=== PATIENT | female | born 1955 | race Caucasian/White ===

== ENCOUNTER → 2023-12-07 13:37 | Outpatient (REF) | payer MEDICARE, OTHER, SELFPAY | LOC: RAD 13:37 | PROVIDERS: ATTENDING PHYSICIAN Internal Medicine Endocrinology, Diabetes & Metabolism; FAMILY PHYSICIAN Physician Assistant Medical | DX: E04.2 Nontoxic multinodular goiter (principal) | CPT/HCPCS: 76536 ==

== ENCOUNTER → 2023-12-12 12:17 | Outpatient (REF) | payer MEDICARE, OTHER, SELFPAY | LOC: WDC 12:17 | PROVIDERS: ATTENDING PHYSICIAN Obstetrics & Gynecology; FAMILY PHYSICIAN Physician Assistant Medical | DX: Z12.31 Encounter for screening mammogram for malignant neoplasm of breast (principal) | CPT/HCPCS: 77063; 77067 ==

== ENCOUNTER → 2024-07-23 06:45 | Outpatient (REF) | payer MEDICARE, OTHER, SELFPAY | LOC: MRI 3T 06:45 | PROVIDERS: ATTENDING PHYSICIAN Physician Assistant Medical; FAMILY PHYSICIAN Physician Assistant Medical | DX: M79.645 Pain in left finger(s) (principal) | CPT/HCPCS: 73218 ==

== ENCOUNTER → 2024-07-26 14:16 | Outpatient (REF) | payer MEDICARE, OTHER, SELFPAY | LOC: RCS 14:16 | PROVIDERS: ATTENDING PHYSICIAN Orthopaedic Surgery | DX: Z01.818 Encounter for other preprocedural examination (principal) | CPT/HCPCS: 93005 ==

== ENCOUNTER 2024-08-22 13:55 | Outpatient (RCR) | payer MEDICARE, OTHER, SELFPAY | END 2024-08-22 23:59 | disposition home or self-care (01) | LOC: ROT 13:55 | PROVIDERS: ATTENDING PHYSICIAN Physician Assistant Medical; FAMILY PHYSICIAN Physician Assistant Medical | DX: S63.642D Sprain of metacarpophalangeal joint of left thumb, subsequent encounter (principal); Z73.6 Limitation of activities due to disability | CPT/HCPCS: 97166; 97535; 97760 ==

== ENCOUNTER 2024-09-18 10:03 | Outpatient (RCR) | payer MEDICARE, OTHER, SELFPAY | END 2024-09-18 23:59 | disposition home or self-care (01) | LOC: RPT 10:03 | PROVIDERS: ATTENDING PHYSICIAN Physician Assistant Medical; FAMILY PHYSICIAN Physician Assistant Medical | DX: Z47.89 Encounter for other orthopedic aftercare (principal); S63.642D Sprain of metacarpophalangeal joint of left thumb, subsequent encounter (principal); Z73.6 Limitation of activities due to disability; W01.0XXD Fall on same level from slipping, tripping and stumbling without subsequent striking against object, subsequent encounter | CPT/HCPCS: 97018; 97110; 97140; 97530 ==

== ENCOUNTER 2024-10-18 11:03 | Outpatient (RCR) | payer MEDICARE, OTHER, SELFPAY | END 2024-10-18 23:59 | disposition home or self-care (01) | LOC: RPT 11:03 | PROVIDERS: ATTENDING PHYSICIAN Physician Assistant Medical; FAMILY PHYSICIAN Physician Assistant Medical | DX: S63.642D Sprain of metacarpophalangeal joint of left thumb, subsequent encounter (principal); Z73.6 Limitation of activities due to disability; W01.0XXD Fall on same level from slipping, tripping and stumbling without subsequent striking against object, subsequent encounter; Z47.89 Encounter for other orthopedic aftercare | CPT/HCPCS: 97018; 97110; 97140 ==

== ENCOUNTER → 2024-12-12 13:02 | Outpatient (REF) | payer MEDICARE, OTHER, SELFPAY | LOC: WDC 13:02 | PROVIDERS: ATTENDING PHYSICIAN Obstetrics & Gynecology; FAMILY PHYSICIAN Physician Assistant Medical | DX: Z12.31 Encounter for screening mammogram for malignant neoplasm of breast (principal) | CPT/HCPCS: 77063; 77067 ==

== ENCOUNTER → 2025-01-17 14:46 | Outpatient (REF) | payer MEDICARE, OTHER, SELFPAY | LOC: RAD 14:46 | PROVIDERS: ATTENDING PHYSICIAN Internal Medicine Endocrinology, Diabetes & Metabolism; FAMILY PHYSICIAN Physician Assistant Medical | DX: E04.2 Nontoxic multinodular goiter (principal) | CPT/HCPCS: 76536 ==